=== PATIENT | male | born 1955 | race Two or more races ===

== ENCOUNTER 2017-11-08 09:45 | Emergency (ER) | payer MEDICAID ==
[~2017-11-08] VITALS: Ht 175.3 cm; Wt 75.8 kg
[2017-11-08] MEDS ORDERED: METOCLOPRAMIDE 10MG TABLET PO ONE (12:00)
[2017-11-08] MEDS ORDERED: DIPHENHYDRAMINE 25 MG CAPSULE PO ONE (12:00)
[2017-11-08] MEDS ORDERED: DIPHENHYDRAMINE 25 MG CAPSULE ONE (12:23)
[2017-11-08] MEDS ORDERED: METOCLOPRAMIDE 10MG TABLET ONE (12:23)
[2017-11-08 13:24] VITALS: BP 116/78
== END 2017-11-08 13:27 | disposition home or self-care (01) ==
LOC: ED 13:25
DX: G44.219 Episodic tension-type headache, not intractable (principal)
CPT/HCPCS: 70450; 99284; Q0163